=== PATIENT | female | born 1965 | race Caucasian/White ===

== ENCOUNTER → 2017-08-10 | Outpatient (CLI) | payer BC ==
[~2017-08-10] MED LIST: CELEBREX 200 M200 MG PO; DESYREL150 MG PO; IBUPROFEN 200200 M1 PO; LEVOTHYROXINE0.05 MG PO; MOBIC15 MG PO; NEURONTIN 300300 M1 PO; UNICOMPLEX M TA1 TA1 PO
== END ==
LOC: RAD 09:41
DX: Z12.31 Encounter for screening mammogram for malignant neoplasm of breast (principal)

== ENCOUNTER → 2018-08-23 | Outpatient (CLI) | payer BC | LOC: RAD 14:09 | DX: Z12.31 Encounter for screening mammogram for malignant neoplasm of breast (principal) ==